=== PATIENT | female | born 1995 | race Caucasian/White ===

== ENCOUNTER 2022-11-25 09:48 | Outpatient (CLI) | payer BC ==
--- NOTE | 2022-11-25 13:09 | Ultrasound Report ---
PROCEDURE: Pelvic w/Transvaginal INDICATIONS: MENORRHAGIA TECHNIQUE: Real-time scanning was performed of the pelvic organs, with image documentation. Additional endovagi nal scanning was necessary due to incomplete visualization of the adnexal and endometrial structures by transabdominal scanning. COMPARISON: None. FINDINGS: Uterus: Uterus is anteverted and normal in size at 7.3 x 5.0 x 3.6 cm. The myometrium is homogeneou s. The endometrium measures 10 mm in combined thickness. Ovaries: The right ovary measures 3.8 x 2.3 x 2.2 cm, with a calculated ovarian volume of 10 cc. Th e left ovary measures 2.9 x 2.5 x 1.5 cm, with a calculated ovarian volume of 6 cc. Greater than 12 follicles can be seen in each ovary. No adnexal masses are seen. Other: No pathologic free abdominal or pelvic fluid. IMPRESSION: 1. Greater than 12 follicles visualized in each ovary, a finding that can be seen in the setting of p olycystic ovarian morphology. 2. No focal endometrial lesion or abnormal endometrial vascularity identified. Reviewed by: Cameron Thompson MD on 11/25/2022 1:08 PM PDT Approved by: Cameron Thompson MD on 11/25/2022 1:08 PM PDT Station ID: [id number]
== END 2022-11-25 09:49 | disposition home or self-care (01) ==
LOC: DI 09:48
PROVIDERS: ATTEND Nurse Practitioner
DX: N92.0 Excessive and frequent menstruation with regular cycle (principal)